=== PATIENT | male | born 1935 | race Caucasian/White ===

== ENCOUNTER 2017-09-23 10:05 | Observation (INO) | payer OTHER ==
[~2017-09-23] VITALS: Ht 182.9 cm; Wt 77.8 kg
[~2017-09-23 10:05] MED LIST: DOXY100C2 PO; FINA5TAB4 PO; NRN/300 PO; PRAVASTATIN 40 MG PO; TAMS0.4C59 PO; ZNT/150 PO
[2017-09-23] MEDS ORDERED: ONDANSETRON INJ 2 MG/ML 2 ML VIAL IV STA (10:24)
[2017-09-23] MEDS ORDERED: SODIUM CHLORIDE 0.9% 1000ML 1,000 ML IV STA ×2 (10:24→12:22)
--- NOTE | 2017-09-23 10:46 | EMERGENCY ROOM VISIT NOTE ---
History Report prepared by Bianca: Paul Chicas Under the Supervision of: Dr. Sachin Ontiveros D.O. First contact with patient: 10:13 Chief Complaint: DEHYDRATION Stated Complaint: NOTHING TO DRINK SINCE FRIDAY,DEHYDRATED,VOM Nursing Triage Summary: pt has not been feeling well has not been eating since . last night when given gatorade then threw up 20 minutes later.. having diarrhea History of Present Illness The patient is an 81 year old male who presents to the Emergency Room with complaints intermittent vomiting of five days [employer]. He notes his vomit is dark brown in color and liquid in nature. He reports that he has not been feeling well for five days and seems to be worsening. He currently rates his pain a 6/ 10 in severity. He notes nausea, vomiting, fevers, abdominal pain, frequent urination, loss of appetite, and inability of pass any bowel movements. He notes his urine is normal. He denies any headaches or bloody stools. He also notes that he quit taking a "stomach pill" four months ago, that was prescribed to him through [employer] [facility]. He denies any history of smoking or drinking. He denies a history of HTN. Source of History: patient Onset: five days [employer]EL[employer] Position: other (global ) Symptom Intensity: 6/10 Quality: other (vomiting) Timing: intermittent Associated Symptoms: + fevers, + nausea, + vomiting, + abdominal pain, No headache Note: He notes frequent urination, loss of appetite, and inability of pass any bowel movements. He denies any bloody stools. Review of Systems See HPI for pertinent positives & negatives. A total of 10 systems reviewed and were otherwise negative. Past Medical & Surgical Medical Problems: (1) Benign prostatic hyperplasia (2) Cardiomyopathy (3) Carpal tunnel syndrome (4) Electrocardiogram abnormal (5) Hyperglycemia (6) Idiopathic peripheral neuropathy (7) Metabolic acidosis (8) Nausea and vomiting (9) s/p carpal tunnel surgery (10) s/p cataract extraction Surgical Problems: (1) H/O colonoscopy Family History No pertinent family history reported. Social History Smoking Status: Never Smoker Smokeless Tobacco Use: No Alcohol Use: occasionally Drug Use: none Housing Status: lives alone Occupation Status: retired Current/Historical Medications Scheduled Donepezil HCl (Aricept), 1 TAB PO HS Gabapentin (Gabapentin), 1 CAP PO UD Ranitidine (Zantac), 150 MG PO BID Tamsulosin Hcl (Flomax), 2 CAP PO HS Allergies Coded Allergies: No Known Allergies (Unverified , 09/23/17) Physical Exam Vital Signs Date Time Temp Pulse Resp B/P (MAP) Pulse Ox O2 Delivery O2 Flow Rate FiO2 09/23/17 13:30 99 Room Air 09/23/17 12:41 60 09/23/17 12:23 62 18 119/57 99 Room Air 09/23/17 11:16 52 16 113/63 98 Room Air 09/23/17 10:35 70 20 117/68 98 Room Air 09/23/17 10:35 56 09/23/17 10:07 36.3 60 18 114/69 99 Room Air Physical Exam GENERAL: Patient is awake, alert, and is mildly anxious appearing, though in no significant pain. EYES: The conjunctivae are clear. The pupils are round and reactive. EARS, NOSE, MOUTH AND THROAT: The nose is without any evidence of any deformity. Mucous membranes are moist tongue is midline NECK: The neck is nontender and supple. RESPIRATORY: Normal respiratory effort is noted there is no evidence of wheezing rhonchi or rales CARDIOVASCULAR: Regular rate and rhythm noted there no murmurs rubs or gallops normal S1 normal S2 GASTROINTESTINAL: The abdomen is soft. Bowel sounds are present in all quadrants. Abdomen is moderately distended and diffuse tenderness. Tender to palpation in RLQ, no guarding or rigidity. MUSCULOSKELETAL/EXTREMITIES: There is no evidence of gross deformity full range of motion is noted in the hips and shoulders. SKIN: There is no obvious evidence of any rash. There are no petechiae, pallor or cyanosis noted. Trace pedal edema bilaterally. NEUROLOGIC: Patient is awake alert and oriented x3. Medical Decision & Procedures ER Provider Diagnostic Interpretation: Radiology results as stated below per my review and radiologist interpretation: CHEST ONE VIEW PORTABLE HISTORY: Generalized abdominal pain. COMPARISON: Chest 10/29/2012. FINDINGS: The lungs are clear. Cardiac silhouette is normal in size. No pleural effusions. No pneumothorax. IMPRESSION: No acute process. Electronically signed by: Danny Carpenter M.D. 09/23/2017 10:53 AM Dictated Date/Time: 09/23/2017 10:[address] SCAN OF THE ABDOMEN AND PELVIS WITHOUT CONTRAST CLINICAL HISTORY: lower pain, vomiting DEHYDRATION COMPARISON STUDY: No previous studies for comparison. TECHNIQUE: CT scan of the abdomen and pelvis was performed from the lung bases to the proximal femurs. Images are reviewed in the axial, sagittal, and coronal planes. IV contrast was not administered for this examination. A dose lowering technique was utilized adhering to the principles of ALARA. CT DOSE: 370.00 mGy.cm FINDINGS: Lower chest: There is underlying pulmonary emphysema. There is mild lower lobe bronchial wall thickening and mucous plugging. There is a small hiatal hernia. There is a small pericardial effusion. Liver: The unenhanced liver is normal in size, contour, and attenuation. There is no intrahepatic biliary ductal dilatation. Gallbladder: Unremarkable. Spleen: The spleen is enlarged measuring 15.5 cm Pancreas: Unremarkable. Adrenal glands: There is mild bilateral adrenal gland thickening Kidneys: The 17 mm exophytic right renal mass. Although likely representing a cyst, this does slightly exceed water attenuation. Multiple tiny intrarenal calculi are visualized on the left. There is no hydronephrosis. No ureteral or bladder calculi are visualized. Bowel: There are no transition zones indicate bowel obstruction. The appendix appears normal. There is no acute diverticulitis. There is mild fecal retention. Peritoneum: There is no intraperitoneal free air or abdominal ascites. Vasculature: The abdominal aorta is normal in course and caliber. Adenopathy: Para-aortic lymph nodes are the upper limits of normal in size Pelvic viscera: There is mild prostamegaly Skeletal structures: No destructive osseous lesions are seen. IMPRESSION: 1. Left-sided nephrolithiasis. No ureteral or bladder calculi identified 2. No evidence of bowel obstruction. No evidence of free air. Mild fecal retention. 4. No evidence of acute appendicitis. No evidence of acute diverticulitis. Electronically signed by: Mahamed Veronica M.D. 09/23/2017 11:01 AM Dictated Date/Time: 09/23/2017 10:55 AM Laboratory Results 09/23/17 10:30 Red Blood Count 4.83, Mean Corpuscular Volume 89.6, Mean Corpuscular Hemoglobin 31.7, Mean Corpuscular Hemoglobin Concent 35.3, Mean Platelet Volume 12.2 09/23/17 10:30 Test 09/23/17 10:30 09/23/17 12:15 White Blood Count 4.17 K/uL (4.8-10.8) Red Blood Count 4.83 M/uL (4.7-6.1) Hemoglobin 15.3 g/dL (14.0-18.0) Hematocrit 43.3 % (42-52) Mean Corpuscular Volume 89.6 fL (80-100) Mean Corpuscular Hemoglobin 31.7 pg (25-34) Mean Corpuscular Hemoglobin Concent 35.3 g/dl (32-36) Platelet Count 93 K/uL (130-400) Mean Platelet Volume 12.2 fL (7.4-10.4) RDW Standard Deviation 44.0 fL (36.4-46.3) RDW Coefficient of Variation 13.3 % (11.5-14.5) Neutrophils % (Manual) 78.7 % Lymphocytes % (Manual) 13.3 % Monocytes % (Manual) 8.0 % Neutrophils # (Manual) 3.28 K/uL (1.4-6.5) Total Absolute Neutrophils 3.28 K/uL (1.4-6.5) Lymphocytes # (Manual) 0.55 K/uL (1.2-3.4) Total Absolute Lymphocytes 0.55 K/uL (1.2-3.4) Monocytes # (Manual) 0.33 K/uL (0.11-0.59) Platelet Estimate DECREASED Prothrombin Time 10.3 SECONDS (9.0-12.0) Prothromb Time International Ratio 1.0 (0.9-1.1) Activated Partial Thromboplast Time 26.2 SECONDS (21.0-31.0) Partial Thromboplastin Ratio 1.0 Anion Gap 13.0 mmol/L (3-11) Est Creatinine Clear Calc Drug Dose 53.5 ml/min Estimated GFR () 70.8 Estimated GFR (Non- 61.1 BUN/Creatinine Ratio 25.8 (10-20) Calcium Level 9.6 mg/dl (8.5-10.1) Magnesium Level 2.1 mg/dl (1.8-2.4) Total Bilirubin 1.2 mg/dl (0.2-1) Direct Bilirubin 0.3 mg/dl (0-0.2) Aspartate Amino Transf (AST/SGOT) 43 U/L (15-37) Alanine Aminotransferase (ALT/SGPT) 26 U/L (12-78) Alkaline Phosphatase 65 U/L (45-117) Total Creatine Kinase 55 U/L (39-308) Creatine Kinase MB 1.0 ng/ml (0.5-3.6) Creatine Kinase MB Ratio 1.8 (0-3.0) Troponin I < 0.015 ng/ml (0-0.045) Total Protein 7.8 gm/dl (6.4-8.2) Albumin 3.8 gm/dl (3.4-5.0) Lipase 155 U/L (73-393) Urine Color DK YELLOW Urine Appearance CLOUDY (CLEAR) Urine pH 6.0 (4.5-7.5) Urine Specific [place] 1.032 (1.000-1.030) Urine Protein 2+ (NEG) Urine Glucose (UA) NEG (NEG) Urine Ketones 1+ (NEG) Urine Occult Blood NEG (NEG) Urine Nitrite NEG (NEG) Urine Bilirubin NEG (NEG) Urine Urobilinogen NEG (NEG) Urine Leukocyte Esterase TRACE (NEG) Urine WBC (Auto) 1-5 /hpf (0-5) Urine RBC (Auto) 0-4 /hpf (0-4) Urine Hyaline Casts (Auto) 5-10 /lpf (0-5) Urine Epithelial Cells (Auto) >30 /lpf (0-5) Urine Bacteria (Auto) NEG (NEG) Urine Crystals AMORPHOUS SEDIMENT (NONE Urine Pathogenic Casts /lpf (0) Urine Mucus PRESENT (NONE PRSENT) Urine Yeast (Auto) (NONE PRSENT) Laboratory results per my review. Medications Administered Medications (Trade) Dose Ordered Sig/Esme Route Start Time Stop Time Status Last Admin Dose Admin Sodium Chloride 1,000 ml @ 999 mls/hr Q1H1M STAT IV 09/23/17 10:24 09/23/17 11:24 DC 09/23/17 11:04 999 MLS/HR Ondansetron HCl (Zofran Inj) 4 mg NOW STAT IV 09/23/17 10:24 09/23/17 10:25 DC 09/23/17 10:40 4 MG Promethazine HCl 12.5 mg/Sodium Chloride 50.5 ml @ 204 mls/hr NOW STAT IV 09/23/17 11:18 09/23/17 11:32 DC 09/23/17 11:27 204 MLS/HR Pantoprazole Sodium 40 mg/ Syringe 10 ml @ 5 mls/min NOW ONCE IV 09/23/17 11:30 09/23/17 11:31 DC 09/23/17 11:27 5 MLS/MIN Sodium Chloride 1,000 ml @ 999 mls/hr Q1H1M STAT IV 09/23/17 12:22 09/23/17 13:22 DC 09/23/17 12:30 999 MLS/HR Dextrose/Sodium Chloride 1,000 ml @ 75 mls/hr [id number] IV 09/23/17 14:00 10/23/17 13:59 09/23/17 15:57 75 MLS/HR Ondansetron HCl (Zofran Inj) 4 mg Q6H PRN IV 09/23/17 14:00 10/23/17 13:59 09/23/17 16:01 4 MG ECG Indication: vomiting Rate (beats per minute): 59 Rhythm: sinus bradycardia Findings: no ectopy, other (Diffuse T wave flattening noted) ED Course 1018: The patient was evaluated in room B5. A complete history and physical examination were performed. 1024: Ordered Zofran 4 mg IV and NSS 1,000 ml @ 999 mls/hr IV 1118: Ordered Promethazine HCl 12.5 mg/Sodium Chloride 50.5 ml @ 204 mls/hr IV 1130: Ordered Pantoprazole sodium 40 mg/Syringe 10 ml @ 5 mls/min IV 1205: I reassessed the patient at this time. He is feeling better and resting comfortably. 1222: Ordered NSS 1,000 ml @ 999 mls/hr IV 1254: I spoke with Jason Green PA-C. We discussed the patients case. The patient will be further evaluated. Medical Decision Prior records/ancillary studies reviewed. Triage Nursing notes reviewed. The patient's history was concerning for abdominal pain. Differential diagnosis: Etiologies such as appendicitis, diverticulitis, PUD, biliary pathology, UTI, pancreatitis, obstruction, mesenteric ischemia, aortic pathology, infections, inflammatory bowel disease, renal colic, as well as others were entertained. The patient is an 81-year-old male who presented to the emergency department with a friend for an evaluation of nausea and vomiting. The patient started having upper abdominal discomfort as well as nausea vomiting. His abdomen was distended but he did not have a physical exam consistent with an acute surgical abdomen. Patient was treated with IV fluids IV antiemetics. On subsequent reevaluation he was feeling much better. I discussed the patient's condition and his laboratory and radiographic studies with him. He appears to have continued nausea. The patient had one episode of emesis which was dark in color. I discussed his case with the on-call [facility] hospitalist group. They' ve agreed to evaluate the patient in emergency apartment for further management and disposition. Medication Reconcilliation Current Medication List: was personally reviewed by me Blood Pressure Screening Patient's blood pressure: Normal blood pressure Consults Time Called: 1250 Consulting Physician: Jason Green PA-C Returned Call: 1254 I spoke with Jason Green PA-C. We discussed the patients case. The patient will be further evaluated. Impression Primary Impression: Nausea and vomiting Additional Impressions: Dehydration Constipation Scribe Attestation The scribe's documentation has been prepared under my direction and personally reviewed by me in its entirety. I confirm that the note above accurately reflects all work, treatment, procedures, and medical decision making performed by me. Departure Information Dispostion Being Evaluated By Hospitalist Referrals No Doctor, Assigned (PCP) Patient Instructions [facility] Problem Qualifiers Additional Impressions: Constipation Constipation type: unspecified constipation type Qualified Codes: K59.00 - Constipation, unspecified
--- NOTE | 2017-09-23 10:55 | DIAGNOSTIC IMAGING REPORT ---
CHEST ONE VIEW PORTABLE HISTORY: Generalized abdominal pain. COMPARISON: Chest 10/29/2012. FINDINGS: The lungs are clear. Cardiac silhouette is normal in size. No pleural effusions. No pneumothorax. IMPRESSION: No acute process. Electronically signed by: Danyn Carpenter M.D. 09/23/2017 10:53 AM Dictated Date/Time: 09/23/2017 10:41 AM
[2017-09-23 11:02] LABS: PTT PATIENT 26.2 SECONDS (21.0-31.0)
--- NOTE | 2017-09-23 11:02 | DIAGNOSTIC IMAGING REPORT ---
CT SCAN OF THE ABDOMEN AND PELVIS WITHOUT CONTRAST CLINICAL HISTORY: lower pain, vomiting DEHYDRATION COMPARISON STUDY: No previous studies for comparison. TECHNIQUE: CT scan of the abdomen and pelvis was performed from the lung bases to the proximal femurs. Images are reviewed in the axial, sagittal, and coronal planes. IV contrast was not administered for this examination. A dose lowering technique was utilized adhering to the principles of ALARA. CT DOSE: 370.00 mGy.cm FINDINGS: Lower chest: There is underlying pulmonary emphysema. There is mild lower lobe bronchial wall thickening and mucous plugging. There is a small hiatal hernia. There is a small pericardial effusion. Liver: The unenhanced liver is normal in size, contour, and attenuation. There is no intrahepatic biliary ductal dilatation. Gallbladder: Unremarkable. Spleen: The spleen is enlarged measuring 15.5 cm Pancreas: Unremarkable. Adrenal glands: There is mild bilateral adrenal gland thickening Kidneys: The 17 mm exophytic right renal mass. Although likely representing a cyst, this does slightly exceed water attenuation. Multiple tiny intrarenal calculi are visualized on the left. There is no hydronephrosis. No ureteral or bladder calculi are visualized. Bowel: There are no transition zones indicate bowel obstruction. The appendix appears normal. There is no acute diverticulitis. There is mild fecal retention. Peritoneum: There is no intraperitoneal free air or abdominal ascites. Vasculature: The abdominal aorta is normal in course and caliber. Adenopathy: Para-aortic lymph nodes are the upper limits of normal in size Pelvic viscera: There is mild prostamegaly Skeletal structures: No destructive osseous lesions are seen. IMPRESSION: 1. Left-sided nephrolithiasis. No ureteral or bladder calculi identified 2. No evidence of bowel obstruction. No evidence of free air. Mild fecal retention. 4. No evidence of acute appendicitis. No evidence of acute diverticulitis. Electronically signed by: Mahamed Veronica M.D. 09/23/2017 11:01 AM Dictated Date/Time: 09/23/2017 10:55 AM
[2017-09-23 11:05] LABS: ALBUMIN 3.8 gm/dl (3.4-5.0); ALT/SGPT 26 U/L (12-78); BLOOD UREA NITROGEN 29 mg/dl (7-18); CALCIUM 9.6 mg/dl (8.5-10.1); CARBON DIOXIDE 24 mmol/L (21-32); CREATININE 1.11 mg/dl (0.60-1.40); GLUCOSE 156 mg/dl (70-99); LIPASE 155 U/L (73-393); POTASSIUM 3.2 mmol/L (3.5-5.1); SODIUM 140 mmol/L (136-145)
[2017-09-23 11:06] LABS: HEMATOCRIT 43.3 % (42-52); HEMOGLOBIN 15.3 g/dL (14.0-18.0); MEAN CELL VOLUME 89.6 fL (80-100); MEAN CORPUSCULAR HEMOGLOBIN 31.7 pg (25-34); MEAN CORPUSCULAR HGB CONC 35.3 g/dl (32-36); RED CELL DISTRIBUTION WIDTH CV 13.3 % (11.5-14.5); WHITE BLOOD COUNT 4.17 K/uL (4.8-10.8)
[2017-09-23 11:09] LABS: ALKALINE PHOSPHATASE 65 U/L (45-117); AST/SGOT 43 U/L (15-37); TOTAL PROTEIN 7.8 gm/dl (6.4-8.2)
[2017-09-23 11:14] LABS: MEAN PLATELET VOLUME 12.2 fL (7.4-10.4); PLATELET COUNT 93 K/uL (130-400)
[2017-09-23] MEDS ORDERED: PROMETHAZINE HCL INJ 12.5 MG in SODIUM CHLORIDE 0.9% 50ML 50 ML IV STA (11:18)
[2017-09-23] MEDS ORDERED: PANTOprazole INJ 40 MG in SYRINGE 0 ML IV ONE (11:30)
[2017-09-23 13:30] VITALS: O2SAT 99; Ht 182.9 cm; Wt 77.8 kg
--- NOTE | 2017-09-23 13:30 | NUR ---
A/ID: 81 year old male in ED. c/o general abdominal pain, vomiting, diarrhea, and not eating since last . Possible admission/observation. Admission Assessment done. Code Word/Fall Agreement reviewed with patient and friend at bedside, and completed. Patient does have some memory problems per friend. Continued care in ED by RENETTA Cordova.
[2017-09-23] MEDS ORDERED: ONDANSETRON INJ 2 MG/ML 2 ML VIAL IV PRN (14:00)
[2017-09-23] MEDS ORDERED: ACETAMINOPHEN 325 MG TAB PO PRN ×2 (14:15)
[2017-09-23] MEDS ORDERED: NITROGLYCERIN 0.4 MG SL PER TAB CHARGE SL PRN (14:15)
[2017-09-23] MEDS ORDERED: IV FLUIDS COMPLETED PRN (14:45)
--- NOTE | 2017-09-23 15:00 | NUR ---
Patient arrives into room 230-1 from ED. AxOx4. Denies nausea at this time. Telemetry leads applied. No edema noted. Lungs clear on room air. Abdomen soft, non-tender. Skin intact. IV site intact, saline locked. Oriented to call [facility] system and hospital environment. Care assumed by primary RNGoldie.
[2017-09-23 15:02] VITALS: BP 117/65; PULSE 51; TEMP 36.7; O2SAT 95
[2017-09-23] MEDS ORDERED: DONE5TAB9 PO (15:03)
[2017-09-23] MEDS ORDERED: TAMS0.4C38 PO (15:03)
[2017-09-23] MEDS ORDERED: RANI150T85 PO (15:03)
[2017-09-23] MEDS ORDERED: NRN300 PO (15:03)
--- NOTE | 2017-09-23 15:44 | History and Physical ---
History & Physical Date & Time of Service: Sep 23, 2017 at 15:04 Chief Complaint: Dehydration, Nausea And Vomiting Primary Care Physician: No Doctor, Assigned History of Present Illness Source: patient, friend Pt is 81 y/o M with PMH Dementia, BPH presented to ER with c/o N/V x 5 days. Pt states 5 days ago in evening started with nausea and thinks vomited 1-2 times. Reports following days with 5-6 episodes emesis daily. 2 episodes emesis this morning. Reports sometimes noticed emesis brown in coloration. Pt reports last BM 2 days ago and was hard and strained to have BM. Pt denies abdominal pain, reports just nauseated sensation. Pt and friend state he was on medicine for "stomach" (ranitidine) and also was on gabapentin for peripheral neuropathy and Flomax for BPH and Aricept however pt hasn't taken meds for several months as he doesn't feel he needs them. Denies coffee ground emesis, ilene blood noted in emesis, melena, hematochezia, diarrhea. Denies fever/chills, diaphoresis, ODOM , dizziness, syncope, neck pain, CP, SOB, orthopnea, palpitations, cough, sore throat, choking, rhinorrhea, extremity weakness, extremity edema, rashes, hematuria, dysuria, urinary frequency or retention. Hx colonoscopy [address] Ward. In ER pt afebrile, BP: 113/63, no leukocytosis, Cr 1.1 (baseline 1.0), K: 3.2, negative troponin, negative CXR, negative CT abd/pelvis. U/A unremarkable for infection. Pt given Zofran, Phenergan, Protonix, 2L NSS. Pt reports feeling better and nausea resolved. Past Medical/Surgical History Medical Problems: (1) Benign prostatic hyperplasia Status: Chronic (2) Cardiomyopathy Permanent Comment: LVEF 45% by echo 10/31/12 Status: Chronic (3) Carpal tunnel syndrome Status: Resolved (4) Electrocardiogram abnormal Status: Resolved (5) Hyperglycemia Status: Resolved (6) Idiopathic peripheral neuropathy Status: Chronic (7) Metabolic acidosis Status: Resolved (8) Nausea and vomiting Status: Resolved (9) s/p carpal tunnel surgery Status: Resolved (10) s/p cataract extraction Status: Resolved Surgical Problems: (1) H/O colonoscopy Permanent Comment: 2013 - Dr Ward - Diverticulosis Status: Resolved Family History FH: cancer Social History Smoking Status: Former Smoker Smokeless Tobacco Use: No Alcohol Use: occasionally Drug Use: none Housing status: lives alone Occupational Status: retired Immunizations History of Influenza Vaccine: Yes History of Tetanus Vaccine?: Yes History of Pneumococcal: Yes History of Hepatitis B Vaccine: No Multi-Drug Resistant Organisms History of MDRO: No Allergies Coded Allergies: No Known Allergies (Unverified , 09/23/17) Home Medications Scheduled Donepezil HCl (Aricept), 1 TAB PO HS Gabapentin (Gabapentin), 1 CAP PO UD Ranitidine (Zantac), 150 MG PO BID Tamsulosin Hcl (Flomax), 2 CAP PO HS Review of Systems Constitutional: No fever, No chills, No sweats, No weight loss, No weakness Eyes: No worsening of vision, No eye pain, No redness, No discharge ENT: No unusual epistaxis, No nasal symptoms, No sore throat, No trouble swallowing Respiratory: No cough, No sputum, No wheezing, No shortness of breath, No dyspnea on exertion, No dyspnea at rest, No hemoptysis Cardiovascular: No chest pain, No orthopnea, No PND, No edema, No palpitations Abdomen: + problem reported (see HPI) Musculoskeletal: No joint pain, No muscle pain, No swelling, No calf pain Genitourinary - Male: No hematuria, No dysuria, No urinary frequency, No urinary urgency, No urinary retention Neurologic: No paralysis, No weakness, No vertigo, No balance problems Psychiatric: No depression symptoms, No anxiety Hematologic / Lymphatic: No abnormal bleeding/bruising, No clotting problems Integumentary: No rash, No itch Physical Exam Vital Signs Date Time Temp Pulse Resp B/P (MAP) Pulse Ox O2 Delivery O2 Flow Rate FiO2 09/23/17 15:02 36.7 51 16 117/65 (82) 95 Room Air 09/23/17 14:24 54 16 103/58 93 Room Air 09/23/17 13:30 99 Room Air 09/23/17 12:41 60 09/23/17 12:23 62 18 119/57 99 Room Air 09/23/17 11:16 52 16 113/63 98 Room Air 09/23/17 10:35 70 20 117/68 98 Room Air 09/23/17 10:35 56 09/23/17 10:07 36.3 60 18 114/69 99 Room Air General Appearance: WD/WN, no apparent distress Head: normocephalic, atraumatic Eyes: normal inspection, PERRL, EOMI, sclerae normal ENT: pharynx normal, + pertinent finding (mucous membranes mildly dry. hard of hearing) Neck: supple, no JVD, trachea midline Respiratory/Chest: chest non-tender, lungs clear, normal breath sounds, no respiratory distress, no accessory muscle use Cardiovascular: regular rate, rhythm (rate 60), no murmur Abdomen/GI: normal bowel sounds, non tender, soft Back: no CVA tenderness Neurologic/Psych: alert, normal mood/affect, oriented x 3 Skin: normal color, warm/dry, no rash Diagnostics Laboratory Results Results Past 24 Hours Test 09/23/17 10:30 09/23/17 11:19 09/23/17 12:15 Range/Units White Blood Count 4.17 4.8-10.8 K/uL Red Blood Count 4.83 4.7-6.1 M/uL Hemoglobin 15.3 14.0-18.0 g/dL Hematocrit 43.3 42-52 % Mean Corpuscular Volume 89.6 80-100 fL Mean Corpuscular Hemoglobin 31.7 25-34 pg Mean Corpuscular Hemoglobin Concent 35.3 32-36 g/dl Platelet Count 93 130-400 K/uL Mean Platelet Volume 12.2 7.4-10.4 fL RDW Standard Deviation 44.0 36.4-46.3 fL RDW Coefficient of Variation 13.3 11.5-14.5 % Neutrophils % (Manual) 78.7 % Lymphocytes % (Manual) 13.3 % Monocytes % (Manual) 8.0 % Neutrophils # (Manual) 3.28 1.4-6.5 K/uL Total Absolute Neutrophils 3.28 1.4-6.5 K/uL Lymphocytes # (Manual) 0.55 1.2-3.4 K/uL Total Absolute Lymphocytes 0.55 1.2-3.4 K/uL Monocytes # (Manual) 0.33 0.11-0.59 K/uL Platelet Estimate DECREASED Prothrombin Time 10.3 9.0-12.0 SECONDS Prothromb Time International Ratio 1.0 0.9-1.1 Activated Partial Thromboplast Time 26.2 21.0-31.0 SECONDS Partial Thromboplastin Ratio 1.0 Sodium Level 140 136-145 mmol/L Potassium Level 3.2 3.5-5.1 mmol/L Chloride Level 103 98-107 mmol/L Carbon Dioxide Level 24 21-32 mmol/L Anion Gap 13.0 3-11 mmol/L Blood Urea Nitrogen 29 7-18 mg/dl Creatinine 1.11 0.60-1.40 mg/dl Est Creatinine Clear Calc Drug Dose 53.5 ml/min Estimated GFR () 70.8 Estimated GFR (Non- 61.1 BUN/Creatinine Ratio 25.8 10-20 Random Glucose 156 70-99 mg/dl Calcium Level 9.6 8.5-10.1 mg/dl Magnesium Level 2.1 1.8-2.4 mg/dl Total Bilirubin 1.2 0.2-1 mg/dl Direct Bilirubin 0.3 0-0.2 mg/dl Aspartate Amino Transf (AST/SGOT) 43 15-37 U/L Alanine Aminotransferase (ALT/SGPT) 26 12-78 U/L Alkaline Phosphatase 65 45-117 U/L Total Creatine Kinase 55 39-308 U/L Creatine Kinase MB 1.0 0.5-3.6 ng/ml Creatine Kinase MB Ratio 1.8 0-3.0 Troponin I < 0.015 0-0.045 ng/ml Total Protein 7.8 6.4-8.2 gm/dl Albumin 3.8 3.4-5.0 gm/dl Lipase 155 73-393 U/L Urine Color DK YELLOW Urine Appearance CLOUDY CLEAR Urine pH 6.0 4.5-7.5 Urine Specific [place] 1.032 1.000-1.030 Urine Protein 2+ NEG Urine Glucose (UA) NEG NEG Urine Ketones 1+ NEG Urine Occult Blood NEG NEG Urine Nitrite NEG NEG Urine Bilirubin NEG NEG Urine Urobilinogen NEG NEG Urine Leukocyte Esterase TRACE NEG Urine WBC (Auto) 1-5 0-5 /hpf Urine RBC (Auto) 0-4 0-4 /hpf Urine Hyaline Casts (Auto) 5-10 0-5 /lpf Urine Epithelial Cells (Auto) >30 0-5 /lpf Urine Bacteria (Auto) NEG NEG Urine Crystals AMORPHOUS SEDIMENT NONE PRSENT Urine Pathogenic Casts 0 /lpf Urine Mucus PRESENT NONE PRSENT Urine Yeast (Auto) NONE PRSENT Diagnostic Radiology CT ABD/PELVIS: IMPRESSION: 1. Left-sided nephrolithiasis. No ureteral or bladder calculi identified 2. No evidence of bowel obstruction. No evidence of free air. Mild fecal retention. 4. No evidence of acute appendicitis. No evidence of acute diverticulitis CXR: IMPRESSION: No acute process. EKG EKG: sinus jaqueline 59 Read by cardiology Sinus bradycardia Nonspecific T wave abnormality Abnormal ECG When compared with ECG of 30-OCT-2012 11:25, No significant change was found Confirmed by Kurtis Holman ([id number]) on 09/23/2017 12:26:14 PM Impression Assessment and Plan NAUSEA/VOMITING/DEHYDRATION Pt presents with hx N/V x 5 days ?hematemesis. constipation 2 days ago. Dehydration with BUN/CR ratio >20. Cr 1.1 (baseline 1.0). Negative CT abd/ pelvis today with no signs bowel obstruction at this time. Pt given 2L NSS in ER and zofran, Phenergan with moderate relief of nausea and no further vomiting -pending gastric occult -npo except ice chips/sips for now -D5W 1/2NSS 75ml/hr, can d/c and switch to NSS when pt starts eating -Potassium 10meq IV x 4 bags -zofran prn N/V -protonix IV -repeat cbc, K this afternoon -cbc, cmp in am DEMENTIA Pt hasn't been taking home dementia meds BPH Pt reports not taking flomax. Reports urinating normally. DVT PROPHYLAXIS -SCDs as ?hematemesis DISPOSITION -admit tele -DNR as per discussion with pt -Follows with Dr Mendoza for routine care Pt was seen with Dr Love. See addendum Attending Physician Dr. Love, Patient seen and assessed with BELA Alexander. I agree with the assessment and plan as above. This is a patient with several days or vomiting. As per the patient and his friend at the bedside, the vomiting was described as a brown color. In this description, there is concern whether patient may be having hematemesis. However, patient's admission Hgb of 15 which is generally above previous documented Hgb of 12 to 13 on inpatient and outpatient regards. Likely patient is dehydrated from vomiting and there is hemoconcentration. This makes acute blood loss from vomiting less likely. Patient will be observed on telemetry in case he has upper GI bleed. On physical exam patient is breathing on room air and is comfortable without subjective abdominal pain or palpable tenderness of abdomen. Will start on IV fluids with dextrose to avoid hypoglycemia. IV potassium replacement ordered because admission serum potassium 3.2 (hypokalemia) likely from losses from vomiting. Will have patient on antiemetics. Patient reports he has poor oral intake but hungry so will try trial of clear liquid diet. If vomiting symptoms resolve and Hgb stable then patient should have diet advanced tomorrow Level of Care Telemetry Advanced Directives Existing Living Will: No Existing Power of Tip Cementer: No Resuscitation Status DO NOT RESUSCITATE VTE Prophylaxis VTE Risk Assessment Done? Y/N: Yes Risk Level: Moderate Additional Copies To Oscar Mendoza M.D.
[2017-09-23] MEDS: POTASSIUM CHLR 10 MEQ / WTR 10 MEQ in PREMIXED WATER 100 ML IV SCH ×4 (15:56→19:43)
[2017-09-23] MEDS: D5W AND 1/2NSS 1,000 ML IV SCH (15:57)
[2017-09-23 16:00] VITALS: O2SAT 95
--- NOTE | 2017-09-23 16:00 | NUR ---
A: Pt. is resting in bed at this time. Telemetry intact showing sinus bradycardia in 50s. Denies CP or palpitations. C/o nausea. Will administer zofran. IV fluids infusing at 75 mL/hr (D5 0.45 % NS). Needs 4 bags KCl 10 mEq. Will continue to closely monitor Call berman at bedside, all needs addressed.
[2017-09-23 19:17] LABS: HEMATOCRIT 35.5 % (42-52); HEMOGLOBIN 12.5 g/dL (14.0-18.0); MEAN CELL VOLUME 91.5 fL (80-100); MEAN CORPUSCULAR HEMOGLOBIN 32.2 pg (25-34); MEAN CORPUSCULAR HGB CONC 35.2 g/dl (32-36); RED CELL DISTRIBUTION WIDTH CV 13.6 % (11.5-14.5); RED CELL DISTRIBUTION WIDTH SD 44.8 fL (36.4-46.3); WHITE BLOOD COUNT 4.01 K/uL (4.8-10.8)
[2017-09-23 19:25] VITALS: BP 118/72; PULSE 54; TEMP 37.3; O2SAT 96
[2017-09-23 19:35] LABS: MEAN PLATELET VOLUME 11.3 fL (7.4-10.4); PLATELET COUNT 87 K/uL (130-400)
--- NOTE | 2017-09-23 20:15 | NUR ---
A: Pt. is A&Ox3, answers questions appropriately. Denies any complaints. Telemetry showing SB in 50s-NSR in low 60s. No CP. D5 0.45 NS infusing at 75 mL/hr. Progressed diet from NPO to clear liquid. Pt. requested jello and tolerated it well. Denies nausea at this time. Call berman within reach, denies pain. All needs addressed. Will continue to closely monitor
--- NOTE | 2017-09-23 20:55 | NUR ---
Walked patient around entire unit at pt.'s request. Well tolerated. Does well with supervision, only two moments of unsteadiness.
--- NOTE | 2017-09-23 22:35 | NUR ---
Bladder scanned patient for 375 mL. Pt. states he does not feel as if he has to void. Pt. encouraged to try to void in bathroom. He is currently in the bathroom at this time.
[2017-09-23 22:42] VITALS: BP 107/52; PULSE 50; TEMP 37; O2SAT 94
--- NOTE | 2017-09-24 | NUR ---
A. Patient assessed, resting in bed. He is currently AAOx4 but noted mild confusion at times. He is denying any pain, SOB, nausea or diarrhea. VSS. SB with HR in 50s. Tolerating clear liquids at this time. Repositioning on own, assist to stand. Voided in urinal with assistance. IV intact with IVF. He was reminded on his fall risk and not to get up without staff present. Bed alarm is on.
[2017-09-24 03:03] VITALS: BP 104/66; PULSE 55; TEMP 37; O2SAT 96
--- NOTE | 2017-09-24 04:00 | NUR ---
A. Patient reassessed, resting in bed. No changes at this time. He has been sleeping well throughout the night. VSS. SB with HR in 50s. Repositioning on own. IV intact with IVF. Voided in urinal, concentrated yellow. Bed alarm is on. He was reminded to use call berman if needing anything.
[2017-09-24 06:10] LABS: HEMATOCRIT 35.5 % (42-52); MEAN CELL VOLUME 92.9 fL (80-100); MEAN CORPUSCULAR HEMOGLOBIN 31.4 pg (25-34); MEAN CORPUSCULAR HGB CONC 33.8 g/dl (32-36); RED CELL DISTRIBUTION WIDTH CV 13.8 % (11.5-14.5); RED CELL DISTRIBUTION WIDTH SD 46.7 fL (36.4-46.3)
[2017-09-24 06:20] LABS: MEAN PLATELET VOLUME 10.6 fL (7.4-10.4); PLATELET COUNT 93 K/uL (130-400)
[2017-09-24 06:43] LABS: ALBUMIN 2.9 gm/dl (3.4-5.0); CALCIUM 8.2 mg/dl (8.5-10.1); CREATININE 0.82 mg/dl (0.60-1.40); POTASSIUM 3.8 mmol/L (3.5-5.1)
[2017-09-24 06:49] LABS: TOTAL PROTEIN 5.8 gm/dl (6.4-8.2)
[2017-09-24 08:00] VITALS: BP 103/62; PULSE 53; TEMP 36.6; O2SAT 98
--- NOTE | 2017-09-24 08:00 | NUR ---
A: denies complaints at present. states he think he will go home today. tolerated 100% clear liquid diet. IVF D5 1/2 NSS infusing at 75ml/hr via 20 jelco left FA, site clear. denies difficulty voiding.
[2017-09-24] MEDS: D5W AND 1/2NSS 1,000 ML IV SCH (08:21)
--- NOTE | 2017-09-24 10:30 | NUR ---
Case management note. Pt identified on social service screening tool as >80 and lives alone. Spoke with pt and with permission friend Robinson in room. Pt appears a&o. [place] Pt lives with s/o [place]. Pt lives in a 3 story house with first floor living. Pt does not use any assistive devices. Pt does not have home health. Pts s/o does have home health. Pt said he normally walk 4 miles per day. Pt is independent with adl's. Pt drives. Explained role of patient case manager. Pt denies any discharge needs. Pt plans to return home at discharge. Case management to follow with pt.
[2017-09-24] MEDS ORDERED: PANTOprazole INJ 40 MG in SYRINGE 0 ML IV SCH (11:00)
[2017-09-24 11:40] VITALS: BP 103/59; PULSE 54; TEMP 36.6; O2SAT 97
--- NOTE | 2017-09-24 12:00 | NUR ---
A: denies complaints at present. tolerating diet increase to AHA diet. IVF infusing without difficulty, site clear. assessment unchanged.
--- NOTE | 2017-09-24 12:51 | Progress Note ---
Internal Med Progress Note Date of Service: Sep 24, 2017. Provider Documentation: SUBJECTIVE: Seen and examined at bedside States feeling well today Nausea, vomiting resolved Denies chest pain, abdominal pain, SOB Family at bedside No other complaints Eager to get discharged OBJECTIVE: Vital Signs-as noted below Physical Exam: General Appearance:Moderately built and nourished, no apparent distress Head: normocephalic, Atraumatic Eyes: normal inspection, EOMI, PERRLA Neck: supple, Trachea midline Respiratory/Chest: Normal breath sounds, CTA Cardiovascular: S1, S2, No murmur Abdomen/GI:Soft, Non tender, Bowel sounds present Extremities/Musculoskelatal:normal inspection, no edema Neurologic/Psych:AAOX3, grossly no focal neurological deficits Skin: normal color, warm Lab data as noted below. ASSESSMENT & PLAN: Nausea, Vomiting: Likely gastroenteritis or related to mild constipation Dehydration Tolerating diet well DC IV fluids Zofran PRN Reports constipation, will start him on Colace CT ABD:Mild fecal retention, no signs of obstruction Hypokalemia: Resolved Dementia: Pt hasn't been taking home dementia meds BPH Pt reports not taking flomax. Reports urinating normally. DVT Px: SCDs Code Status: DNR DISPOSITION Plan to discharge home today Follow up with on 10/01/17 at 1:05pm Take Ranitidine and Colace as advised Seek immediate medical attention if your symptoms reoccur or worsen Vital Signs: Date Time Temp Pulse Resp B/P (MAP) Pulse Ox O2 Delivery O2 Flow Rate FiO2 09/24/17 11:40 36.6 54 18 103/59 (74) 97 Room Air 09/24/17 08:00 Room Air 09/24/17 08:00 36.6 53 16 103/62 (76) 98 Room Air 09/24/17 04:00 Room Air 09/24/17 03:03 37.0 55 16 104/66 (79) 96 Room Air 09/23/17 23:59 Room Air 09/23/17 22:42 37.0 50 16 107/52 (70) 94 Room Air 09/23/17 20:00 Room Air 09/23/17 19:25 37.3 54 18 118/72 (87) 96 Room Air 09/23/17 16:00 95 Room Air 09/23/17 15:02 36.7 51 16 117/65 (82) 95 Room Air 09/23/17 14:24 54 16 103/58 93 Room Air 09/23/17 13:30 99 Room Air Lab Results: Results Past 24 Hours Test 09/23/17 19:01 09/24/17 05:28 Range/Units White Blood Count 4.01 4.70 4.8-10.8 K/uL Red Blood Count 3.88 3.82 4.7-6.1 M/uL Hemoglobin 12.5 12.0 14.0-18.0 g/dL Hematocrit 35.5 35.5 42-52 % Mean Corpuscular Volume 91.5 92.9 80-100 fL Mean Corpuscular Hemoglobin 32.2 31.4 25-34 pg Mean Corpuscular Hemoglobin Concent 35.2 33.8 32-36 g/dl RDW Standard Deviation 44.8 46.7 36.4-46.3 fL RDW Coefficient of Variation 13.6 13.8 11.5-14.5 % Platelet Count 87 93 130-400 K/uL Mean Platelet Volume 11.3 10.6 7.4-10.4 fL Potassium Level 4.0 3.8 3.5-5.1 mmol/L Sodium Level 142 136-145 mmol/L Chloride Level 109 98-107 mmol/L Carbon Dioxide Level 28 21-32 mmol/L Anion Gap 5.0 3-11 mmol/L Blood Urea Nitrogen 24 7-18 mg/dl Creatinine 0.82 0.60-1.40 mg/dl Est Creatinine Clear Calc Drug Dose 74.9 ml/min Estimated GFR () 94.8 Estimated GFR (Non- 81.8 BUN/Creatinine Ratio 28.7 10-20 Random Glucose 112 70-99 mg/dl Calcium Level 8.2 8.5-10.1 mg/dl Total Bilirubin 0.5 0.2-1 mg/dl Aspartate Amino Transf (AST/SGOT) 25 15-37 U/L Alanine Aminotransferase (ALT/SGPT) 19 12-78 U/L Alkaline Phosphatase 47 45-117 U/L Total Protein 5.8 6.4-8.2 gm/dl Albumin 2.9 3.4-5.0 gm/dl Globulin 2.9 2.5-4.0 gm/dl Albumin/Globulin Ratio 1.0 0.9-2
[2017-09-24] MEDS ORDERED: ONDA4TAB65 PO (12:54)
[2017-09-24] MEDS ORDERED: DOCU-94 PO (12:54)
--- NOTE | 2017-09-24 12:59 | Discharge Summary ---
Discharge Summary Date of Service Sep 24, 2017. Discharge Summary Admission Date: Sep 23, 2017 at 14:04 Discharge Date: Sep 24, 2017 Discharge Disposition: Home Principal Diagnosis: Nausea, Vomiting, Dehydration Procedures: CT ABD: 1. Left-sided nephrolithiasis. No ureteral or bladder calculi identified 2. No evidence of bowel obstruction. No evidence of free air. Mild fecal retention. 4. No evidence of acute appendicitis. No evidence of acute diverticulitis. CXR: No acute process. Consultations: None Pending Studies/Follow-Up: Follow up with on 10/01/17 at 1:05pm Take Ranitidine and Colace as advised Seek immediate medical attention if your symptoms reoccur or worsen Medication Reconciliation New Medications: Docusate Sodium (Colace) 100 Mg Cap 1 CAP PO BID for 7 Days, #14 CAP Ondansetron Hcl (Zofran) 4 Mg Tab 4 MG PO PRN PRN for Q6H for 2 Days, #6 TAB Continued Medications: Donepezil HCl (Aricept) 5 Mg Tab 1 TAB PO HS for 30 Days, #30 TAB 5 Refills Gabapentin (Gabapentin) 300 Mg Cap 1 CAP PO UD 1 tab po in am and at noon. 2 tabs po HS Ranitidine (Zantac) 150 Mg Tab 150 MG PO BID, TAB Tamsulosin Hcl (Flomax) 0.4 Mg Cap 2 CAP PO HS for 30 Days, CAP 5 Refills Admission Information HPI (per Admitting provider): Pt is 81 y/o M with PMH Dementia, BPH presented to ER with c/o N/V x 5 days. Pt states 5 days ago in evening started with nausea and thinks vomited 1-2 times. Reports following days with 5-6 episodes emesis daily. 2 episodes emesis this morning. Reports sometimes noticed emesis brown in coloration. Pt reports last BM 2 days ago and was hard and strained to have BM. Pt denies abdominal pain, reports just nauseated sensation. Pt and friend state he was on medicine for "stomach" (ranitidine) and also was on gabapentin for peripheral neuropathy and Flomax for BPH and Aricept however pt hasn't taken meds for several months as he doesn't feel he needs them. Denies coffee ground emesis, ilene blood noted in emesis, melena, hematochezia, diarrhea. Denies fever/chills, diaphoresis, ODOM , dizziness, syncope, neck pain, CP, SOB, orthopnea, palpitations, cough, sore throat, choking, rhinorrhea, extremity weakness, extremity edema, rashes, hematuria, dysuria, urinary frequency or retention. Hx colonoscopy [address] Ward. In ER pt afebrile, BP: 113/63, no leukocytosis, Cr 1.1 (baseline 1.0), K: 3.2, negative troponin, negative CXR, negative CT abd/pelvis. U/A unremarkable for infection. Pt given Zofran, Phenergan, Protonix, 2L NSS. Pt reports feeling better and nausea resolved. Physical Exam (per Admitting): General Appearance: WD/WN, no apparent distress Head: normocephalic, atraumatic Eyes: normal inspection, PERRL, EOMI, sclerae normal ENT: pharynx normal, + pertinent finding (mucous membranes mildly dry. hard of hearing) Neck: supple, no JVD, trachea midline Respiratory/Chest: chest non-tender, lungs clear, normal breath sounds, no respiratory distress, no accessory muscle use Cardiovascular: regular rate, rhythm (rate 60), no murmur Abdomen/GI: normal bowel sounds, non tender, soft Back: no CVA tenderness Neurologic/Psych: alert, normal mood/affect, oriented x 3 Skin: normal color, warm/dry, no rash Hospital Course Nausea, Vomiting: Likely gastroenteritis or related to mild constipation Dehydration Tolerating diet well DC IV fluids Zofran PRN Reports constipation, will start him on Colace CT ABD:Mild fecal retention, no signs of obstruction Hypokalemia: Resolved Dementia: Pt hasn't been taking home dementia meds BPH Pt reports not taking flomax. Reports urinating normally. DVT Px: SCDs Code Status: DNR DISPOSITION Plan to discharge home today Follow up with on 10/01/17 at 1:05pm Take Ranitidine and Colace as advised Seek immediate medical attention if your symptoms reoccur or worsen Total time spent on discharge = This includes examination of the patient, discharge planning, medication reconciliation, and communication with other providers. Discharge Instructions Discharge Instructions Date of Service Sep 24, 2017. Admission Reason for Admission: Dehydration, Nausea And Vomiting Discharge Discharge Diagnosis / Problem: Nausea, Vomiting, Dehydration Discharge Goals Goal(s): Decrease discomfort, Improve function Activity Recommendations Activity Limitations: resume your previous activity Exercise/Sports Limitations: as tolerated . Instructions / Follow-Up Instructions / Follow-Up Follow up with on 10/01/17 at 1:05pm Take Ranitidine and Colace as advised Seek immediate medical attention if your symptoms reoccur or worsen Current Hospital Diet Patient's current hospital diet: AHA Diet (Heart Healthy) Discharge Diet Recommended Diet: AHA Diet (Heart Healthy) Pending Studies Studies pending at discharge: no Medical Emergencies . Who to Call and When: Medical Emergencies: If at any time you feel your situation is an emergency, please call 911 immediately. . Non-Emergent Contact Non-Emergency issues call your: Primary Care Provider Call Non-Emergent contact if: you have a fever, your pain is not controlled, your pain is worsening, your pain is unusual for you, your pain is concerning you, you have any medication questions Seek immediate medical attention if your symptoms reoccur or worsen . . "Provider Documentation" section prepared by Duke Damon. . VTE Core Measure Inpt VTE Proph given/why not?: SCD's
[2017-09-24 14:00] VITALS: BP 103/59; PULSE 54; TEMP 36.6; O2SAT 97
--- NOTE | 2017-09-24 14:30 | NUR ---
A: IVF stopped. saline lock removed with cath intact, site clear, dry dressing applied. discharge instructions given written and verbally to patient with understanding verbalized. d/c to home via private vehicle with personal belongings. taken to entrance via wheelchair by volunteer.
--- NOTE | 2017-09-24 15:34 | NUR ---
Case management note. Upon chart review found pt to be discharged. Case management was not notified of any discharge needs. Md ordered home self care.
== END 2017-09-24 14:30 | disposition home or self-care (01) ==
LOC: C.EDB 10:06 → C.2T 14:04 → ENRESERV 14:21
PROVIDERS: ADMIT Hospitalist; ATTEND Internal Medicine
DX: E86.0 Dehydration (principal); F03.90 Unspecified dementia, unspecified severity, without behavioral disturbance, psychotic disturbance, mood disturbance, and anxiety; I42.9 Cardiomyopathy, unspecified; G60.9 Hereditary and idiopathic neuropathy, unspecified; N40.0 Benign prostatic hyperplasia without lower urinary tract symptoms; Z87.891 Personal history of nicotine dependence; Z79.899 Other long term (current) drug therapy